=== PATIENT | female | born 2000 | race Two or more races ===

== ENCOUNTER 2020-08-06 15:28 | Emergency (ER) | payer SELFPAY ==
[~2020-08-06] VITALS: Ht 160 cm; Wt 61.0 kg
--- NOTE | 2020-08-06 16:17 | NUR ---
Pt in [place] on vacation. Experienced central chest pain that she describes as "a sore muscle in my chest" starting last night that comes on suddenly, resolved completely and then came back this PM. Pt denies CP on arrival, but it is reproducable with palpation. Pt denies any cardiac family hx. Connected to all monitors. Respirations even and unlabored. PERNELL Gallego at bedside for eval.
[2020-08-06] MEDS ORDERED: KETOROLAC 30 MG/1 ML IM ONE (16:30)
[2020-08-06] MEDS ORDERED: KETOROLAC 30 MG/1 ML ONE (16:44)
[2020-08-06 18:09] VITALS: BP 113/60
== END 2020-08-06 18:15 | disposition home or self-care (01) ==
LOC: ED 17:55
DX: R07.89 Other chest pain (principal); R94.31 Abnormal electrocardiogram [ECG] [EKG]
CPT/HCPCS: 71046; 93005; 96372; 99283; J1885

== ENCOUNTER 2020-08-08 11:45 | Emergency (ER) | payer SELFPAY ==
[~2020-08-08] VITALS: Ht 160 cm; Wt 58.5 kg
--- NOTE | 2020-08-08 12:08 | NUR ---
PT BROUGHT BACK TO ROOM VIA WC WITH MOTHER.
--- NOTE | 2020-08-08 12:18 | NUR ---
PT FATIGUED, LYING IN GURNEY WITH EYES CLOSED, EASILY AROUSED. MOTHER SPEAKING FOR PT. MOTHER STATES PT WAS HERE 2 DAYS AGO FOR CHEST PAIN, WAS MEDICATED WITH UNKNOWN MEDICATION, AND HAS HAD N/V SINCE THEN, CAN'T KEEP ANYTHING DOWN. CHEST PAIN RESOLVED. NO OTHER SYMPTOMS. COVID TEST NEGATIVE PER MOTHER. RV'WD POC WITH PT AND MOTHER.
[2020-08-08] MEDS ORDERED: ONDANSETRON 2MG/ML, 2ML IVPush ONE (12:30)
[2020-08-08] MEDS ORDERED: SODIUM CHLORIDE 0.9% 1,000ML IVBOLUS ONE (12:30)
[2020-08-08] MEDS ORDERED: SODIUM CHLORIDE FLUSH 10ML SYR IVF ONE (12:30)
[2020-08-08] MEDS ORDERED: ONDANSETRON 2MG/ML, 2ML ONE (12:35)
[2020-08-08 12:55] LABS: BASOPHILS % (AUTO) 1 % (0-1); EOSINOPHILS % (AUTO) 0 % (1-7); LYMPHOCYTES % (AUTO) 14 % (22-44); MEAN CORPUSCULAR HEMOGLOBIN 21.2 pg (27.0-34.8); MEAN PLATELET VOLUME 8.1 fL (7.4-10.4); MONOCYTES % (AUTO) 10 % (2-9); NEUTROPHILS % (AUTO) 74 % (42-75); PLATELET COUNT 380 x10^3/uL (130-400); RED BLOOD COUNT 4.82 x10^6/uL (3.82-5.3); RED CELL DISTRIBUTION WIDTH 19.5 % (9.6-15.2)
[2020-08-08 13:07] LABS: ALBUMIN 3.7 g/dL (3.4-5.0); ANION GAP 8 mmol/L (5-15); CALCIUM 9.2 mg/dL (8.5-10.1); CHLORIDE 105 mmol/L (98-107)
[2020-08-08 13:12] LABS: ALANINE AMINOTRANSFERASE 20 U/L (12-78); ALKALINE PHOSPHATASE 94 U/L (45-117); BILIRUBIN,TOTAL 0.3 mg/dL (0.2-1.0); TOTAL PROTEIN 8.3 g/dL (6.4-8.2)
[2020-08-08 13:15] LABS: MD MORPH REVIEW ONLY
[2020-08-08 13:16] LABS: ANISOCYTOSIS 1+; HYPOCHROMIA 1+; MICROCYTOSIS 2+; OVALOCYTES 1+
[2020-08-08 13:17] LABS: POLYCHROMASIA 1+
[2020-08-08 13:18] LABS: <PLATELET ESTIMATE> ADEQUATE; <PLT MORPHOLOGY> NORMAL PLT MORPH
--- NOTE | 2020-08-08 13:40 | NUR ---
PT AMBULATED TO BR WITHOUT DIFFICULTY. MORE AWAKE NOW.
--- NOTE | 2020-08-08 13:55 | NUR ---
PT STATES SHE FEELS A LITTLE BETTER AFTER IVF. TALKING ON THE PHONE WITH FAMILY.
[2020-08-08 14:15] VITALS: BP 124/92
--- NOTE | 2020-08-08 14:19 | NUR ---
D/C INSTRUCTIONS, MEDS & F/U APPT RV'WD WITH PT, SHE VERBALIZES UNDERSTANDING. RX GIVEN X2. MOTHER COMING BACK TO PICK PT UP.
--- NOTE | 2020-08-08 14:26 | NUR ---
PT AMBULATED OUT OF ED WITH FAMILY WITHOUT DIFFICULTY. D/C INSTRUCTIONS RV'WD WITH MOTHER, ALL QUESTIONS ANSWERED.
== END 2020-08-08 14:20 | disposition home or self-care (01) ==
LOC: ED 14:14
DX: E86.0 Dehydration (principal); R11.2 Nausea with vomiting, unspecified; D50.9 Iron deficiency anemia, unspecified
CPT/HCPCS: 36415; 80053; 83690; 84703; 85025; 96361; 96374; 99283; J2405; J7030